=== PATIENT | male | born 1940 | race Caucasian/White ===

== ENCOUNTER → 2019-08-05 | Day surgery (SDC) | payer BC ==
[~2019-08-05] MED LIST: ADVAIR 250-501 EACH INH; ALLOPURINOL 10100 M1 PO; ALLOPURINOL 30300 M2 PO; ALTACE 1.25 M1.25 M1 PO; ASPIR 8181 M1 PO; ASPIRIN EC81 M1 PO; ASPIRIN325 PO; BACTRIM 400-801 EACH PO; BAYER CHEWABLE81 MG PO; CRESTOR20 MG PO; CVS PAIN RELIE PO; DIPHENHYDRAMINE25 M3 PO; FLEXERIL PO; FLONASE 0.05%50 MCG NARES; KETOCONAZOLE60 GM TOP; LEVAQUIN 500 M500 M2 PO; LOPRESSOR25 PO; MAG-OXIDE400 MG PO; MELATONIN5 MG SUBLING; MURO-128 5% OPH15 M1 OPHTHALMIC; MURO-128 OPHTH3.5 G1 OPHTHALMIC; MYFORTIC180 MG PO; POTASSIUM99 M1 PO; PRINIVIL5 MG PO; PROAIR HFA8.5 GM INH; PROGRAF1 MG PO; PROTONIX40 M2 PO; TRAMADOL 50 MG50 MG PO; VALCYTE450 MG PO
--- NOTE | ~2019-08-05 | PROC ---
[address] [address] PROCEDURE REPORT Name: DARNELL RODRIGUEZ Room: [facility]#: [id number] Admission: 08/05/19 Attend Phys: Cecilia Starks MD Discharge: Date of : 42 Report #: [id number] THIS REPORT FOR: //name// For GI report, please see the Provation report in Perceptive 7 content. By: 0655Medical Records Staff CHARITY /SCOTT
[2019-08-05 09:17] LABS: HEMATOCRIT 43.9 % (42.0-52.0); MCH 35.2 pg (26.0-34.0); MCHC 34.2 g/dL (28.0-37.0); MCV 102.9 fL (80.0-100.0); MPV 7.3 fl. (7.2-11.1); RBC 4.26 mil/uL (4.50-6.00); RDW-CV 13.5 % (10.5-14.5); WBC 7.3 thou/uL (4.0-11.0)
[2019-08-05 09:30] LABS: CALCIUM 9.5 mg/dL (8.5-10.1); CREATININE 1.3 mg/dL (0.6-1.3); POTASSIUM 3.9 mmol/L (3.5-5.1)
[2019-08-05 09:35] LABS: ALBUMIN 3.7 g/dL (3.4-5.0); TOTAL BILIRUBIN 0.6 mg/dL (<0.1-1.0)
--- NOTE | 2019-08-05 09:57 | EKG ---
[place] [address] ELECTROCARDIOGRAM REPORT Name: TARI RODRIGUEZY Abhijit Room: [facility]#: [id number] Admission: 08/05/19 Attend Phys: Cecilia Starks MD Discharge: Date of : 42 Report #: [id number] THIS REPORT FOR: //name// [facility] Test Date: 2019-08-05 Test Time: 09:06:42 Pat Name: DARNELL RODRIGUEZ Department: Room: Gender: M Mason Foreman/Superintendant: : 1940 Requested By: Naga Mathis Order Number: [id number] Celina MD: Hira Friend Measurements Intervals Baker Rate: 73 P: 20 IL: 168 QRS: -82 QRSD: 141 T: 27 QT: 422 QTc: 465 Interpretive Statements Sinus rhythm Ventricular premature complex RBBB and LAFB Compared to ECG 12/02/2013 18:40:01 Ventricular premature complex(es) now present Electronically Signed On 08-05-2019 9:56:50 [employer] by Hira Friend [email or web address] <ELECTRONICALLY SIGNED> By: Hira Friend MD, [facility] 1156 5 5 Hira Friend MD, [facility] /EPI
--- NOTE | 2019-08-06 19:06 | PATH ---
[facility] [address] [place] [address] PATHOLOGY RPT PROCEDURE Name: DARNELL CLIFFORD Room: [facility]#: [id number] Admission: 08/05/19 Date of : 42 Discharge: Report #: [id number] Path Case #: [id number] [facility] Accession Number: [id number] . 01 Material submitted: . PART A: colon - TRANSVERSE COLON POLYP X4. Modifiers: transverse PART B: colon - DESCENDING COLON POLYP. Modifiers: descending PART C: colon - SIGMOID COLON POLYP. Modifiers: sigmoid . 01 Clinical history: . Personal Hx of polyps . 02 Diagnosis: A. Colon, transverse, biopsy: - Fragments of adenomatous colonic mucosa and hyperplastic colonic mucosa. . B. Colon, descending, biopsy: - Adenomatous polyp. . C. Colon, sigmoid, biopsy: - Adenomatous polyp, one. - Hyperplastic polyps, two. . (PHAN:lorie; 08/06/2019) MBR 08/06/2019 1101 Local . 02 Electronically signed: . Hermann Almeida MD, Pathologist NPI- [id number] . 01 Gross description: . A. Received in formalin labeled "Darnell Cilfford, transverse colon polyp x4," are 5 segments of elaine soft tissue measuring 1.3 x 1.0 x 0.3 cm in aggregate dimensions and ranging from 0.3 to 0.6 cm in maximum dimension. The specimen is submitted entirely in cassette A1. . B. Received in formalin labeled "Darnell Clifford, descending colon polyp," is a single segment of elaine soft tissue measuring 0.6 cm in maximum dimension. The specimen is entirely submitted in cassette B1. . C. Received in formalin labeled "Darnell Clifford, sigmoid colon polyp," are 3 segments of elaine soft tissue measuring 0.6 x 0.6 x 0.2 cm in aggregate dimensions and ranging from 0.4 to 0.5 cm in maximum dimension. The specimen is submitted entirely in cassette C1. (TSD; 08/05/2019) TOB/TOB 08/05/[address] [place] [address] . 02 Pathologist provided ICD-10: [place] [address] PATHOLOGY RPT PROCEDURE Name: DARNELL CLIFFORD Room: [facility]#: [id number] Admission: 08/05/19 Date of : 42 Discharge: Report #: [id number] Path Case #: [id number] D12.4, D12.5, K63.5 . 02 CPT . 221783, [id number], [id number] Specimen Comment: A courtesy copy of this report has been sent to [phone], [phone] Specimen Comment: [id number] Specimen Comment: Report sent to / DR GRAY Performed at: [address] [facility] [address], [place], [place] [id number] MD Neno Lorenzo MD Phone: [phone] Performed at: 02 [facility] [address], [place], [place] [id number] MD Tarun Dacosta MD Phone: [phone]
== END | disposition home or self-care (01) ==
LOC: M.SUR 06:23
PROVIDERS: Anesthesiology
DX: Z12.11 Encounter for screening for malignant neoplasm of colon (principal); Z86.010 Personal history of colon polyps; D12.4 Benign neoplasm of descending colon; D12.5 Benign neoplasm of sigmoid colon; D12.3 Benign neoplasm of transverse colon; K57.30 Diverticulosis of large intestine without perforation or abscess without bleeding; K64.8 Other hemorrhoids; J44.9 Chronic obstructive pulmonary disease, unspecified; Z98.890 Other specified postprocedural states; Z79.899 Other long term (current) drug therapy; Z91.041 Radiographic dye allergy status; Z88.8 Allergy status to other drugs, medicaments and biological substances; Z87.891 Personal history of nicotine dependence; Z94.0 Kidney transplant status